=== PATIENT | male | born 1980 | race Caucasian/White ===

== ENCOUNTER 2018-08-16 03:34 | Inpatient (IN) | payer MEDICAID, OTHER ==
[~2018-08-16] VITALS: Ht 175.3 cm; Wt 93.4 kg
[2018-08-16 07:58] LABS: BASOPHILS % 1.2 % (0.0-2.0); CHLORIDE 108 mEq/L (98-107); EOSINOPHILS % 3.4 % (0.0-5.0); HEMATOCRIT. 36.4 % (42.0-52.0); HEMOGLOBIN. 12.3 g/dL (14.0-18.0); LYMPHOCYTES % 30.6 % (20.0-50.0); MEAN CORPUSCULAR HEMOGLOBIN 29.3 pg (28.0-32.0); MEAN CORPUSCULAR VOLUME 86.6 fL (80.0-94.0); MEAN PLATELET VOLUME 8.3 fl (7.4-10.4); MONOCYTES % 5.7 % (2.0-8.0); NEUTROPHILS % 59.1 % (40.0-76.0); PLATELET 368 x1000/uL (130-400); RED CELL DISTRIBUTION WIDTH 13.3 % (11.6-14.6)
[2018-08-16] MEDS ORDERED: FUROSEMIDE 40MG/4ML VIAL IVP ONE (08:30)
[2018-08-16] MEDS ORDERED: LEVOFLOXACIN 750MG PREMIX 150 ML IV ONE (08:30)
[2018-08-16 10:49] LABS: *AMPHETAMINES SCREEN URINE PRESUMTIVE POSITIVE (NEGATIVE); *BARBITURATES SCREEN URINE NEGATIVE (NEGATIVE); *BENZODIAZEPINES SCREEN URINE NEGATIVE (NEGATIVE); *COCAINE SCREEN URINE NEGATIVE (NEGATIVE); METHADONE URINE SCREEN NEGATIVE (NEGATIVE); OPIATES URINE SCREEN NEGATIVE (NEGATIVE); PHENCYCLIDINE URINE SCREEN NEGATIVE (NEGATIVE)
[2018-08-16 10:50] LABS: CANNABINOID URINE SCREEN NEGATIVE (NEGATIVE)
[2018-08-16] MEDS ORDERED: ACETAMINOPHEN 325MG TABLET PO PRN (11:00)
[2018-08-16] MEDS ORDERED: ONDANSETRON HCL 4MG/2ML INJ IV PRN (11:00)
[2018-08-16] MEDS ORDERED: IPRATROPIUM/ALBUTEROL 0.5-3(2.5)MG/3ML NEB INH PRN (11:00)
[2018-08-16] MEDS ORDERED: CLONIDINE 0.1MG TABLET PO PRN ×2 (11:00→14:00)
[2018-08-16] MEDS ORDERED: HYDROCODONE/ACETAMINOPHEN 5/325MG TABLET PO PRN (11:00)
[2018-08-16] MEDS ORDERED: DOCUSATE SODIUM 100MG CAPSULE PO PRN (11:00)
[2018-08-16 12:28] LABS: PHOSPHORUS 3.1 mg/dL (2.5-4.9)
[2018-08-16] MEDS: AZITHROMYCIN 500 MG TABLET PO SCH (12:37)
[2018-08-16] MEDS ORDERED: CLONIDINE 0.2MG TABLET PO PRN (14:00)
[2018-08-16 14:43] VITALS: BP 140/104
[2018-08-16 14:51] VITALS: BP 140/104
[2018-08-16 14:56] LABS: CLARITY URINE CLEAR (CLEAR); COLOR URINE YELLOW (YELLOW); KETONES URINE NEGATIVE (NEGATIVE); LEUKOCYTE ESTERASE URINE 2+ (NEGATIVE); NITRITE URINE NEGATIVE (NEGATIVE); OCCULT BLOOD URINE NEGATIVE (NEGATIVE); PROTEIN URINE NEGATIVE (NEGATIVE); SPECIFIC GRAVITY URINE 1.019 (1.005-1.030); UROBILINOGEN URINE 0.2 E.U./dL (0.2-1.0)
[2018-08-16] MEDS: AMLODIPINE 5MG TABLET PO SCH ×2 (15:46→21:00)
[2018-08-16 16:30] VITALS: BP 168/120
[2018-08-16 20:00] VITALS: BP 106/57
[2018-08-17] VITALS: BP 120/79
[2018-08-17 04:00] VITALS: BP 118/76
[2018-08-17 06:01] LABS: EOSINOPHILS % 4.2 % (0.0-5.0); HEMATOCRIT. 33.5 % (42.0-52.0); HEMOGLOBIN. 11.7 g/dL (14.0-18.0); LYMPHOCYTES % 33.1 % (20.0-50.0); MEAN CORPUSCULAR HEMOGLOBIN 29.9 pg (28.0-32.0); MEAN CORPUSCULAR VOLUME 85.7 fL (80.0-94.0); MEAN PLATELET VOLUME 8.4 fl (7.4-10.4); NEUTROPHILS % 54.7 % (40.0-76.0); PLATELET 312 x1000/uL (130-400); RED BLOOD CELL COUNT 3.91 mill/uL (4.7-6.1); RED CELL DISTRIBUTION WIDTH 13.3 % (11.6-14.6)
[2018-08-17 06:16] LABS: CHLORIDE 107 mEq/L (98-107)
[2018-08-17 06:29] LABS: PHOSPHORUS 3.6 mg/dL (2.5-4.9)
[2018-08-17 06:30] LABS: LDL CHOLESTEROL 106 mg/dL (5-100)
[2018-08-17 06:31] LABS: HDL CHOLESTEROL 36 mg/dL (40-59)
[2018-08-17] MEDS: AZITHROMYCIN 500 MG TABLET PO SCH (09:33)
[2018-08-17] MEDS: AMLODIPINE 5MG TABLET PO SCH ×2 (09:34→21:20)
[2018-08-17 11:36] VITALS: BP 135/97
[2018-08-17] MEDS ORDERED: POTASSIUM CHLORIDE 20MEQ TABLET SR PO NR (13:15)
[2018-08-17 15:55] VITALS: BP 131/93
[2018-08-17 20:00] VITALS: BP 145/100
[2018-08-17] MEDS ORDERED: ZOLPIDEM TARTRATE 5MG TABLET PO PRN (23:30)
[2018-08-17] MEDS ORDERED: GUAIFENESIN 200MG/10ML SUGAR FREE UDC PO PRN (23:30)
[2018-08-18] VITALS: BP 142/98
[2018-08-18] MEDS ORDERED: VANCOMYCIN 1500MG in DEXTROSE 5% WATER 250ML IV NR (01:00)
[2018-08-18 04:00] VITALS: BP 139/104
[2018-08-18 06:54] LABS: BASOPHILS % 1.2 % (0.0-2.0); EOSINOPHILS % 4.1 % (0.0-5.0); HEMATOCRIT. 34.6 % (42.0-52.0); LYMPHOCYTES % 33.9 % (20.0-50.0); MEAN CORPUSCULAR HEMOGLOBIN 29.6 pg (28.0-32.0); MEAN CORPUSCULAR VOLUME 85.1 fL (80.0-94.0); MEAN PLATELET VOLUME 8.6 fl (7.4-10.4); NEUTROPHILS % 54.8 % (40.0-76.0); PLATELET 336 x1000/uL (130-400); RED BLOOD CELL COUNT 4.07 mill/uL (4.7-6.1); RED CELL DISTRIBUTION WIDTH 13.2 % (11.6-14.6)
[2018-08-18 07:16] LABS: CHLORIDE 107 mEq/L (98-107)
[2018-08-18 07:22] LABS: PHOSPHORUS 3.5 mg/dL (2.5-4.9)
[2018-08-18] MEDS: VANCOMYCIN 1250MG in DEXTROSE 5% WATER 250ML IV SCH ×2 (08:21→22:24)
[2018-08-18 08:25] VITALS: BP 150/112
[2018-08-18] MEDS: AMLODIPINE 5MG TABLET PO SCH ×2 (08:27→20:50)
[2018-08-18] MEDS ORDERED: METOPROLOL TARTRATE 25MG TABLET PO SCH ×2 (09:00→17:00)
[2018-08-18 12:14] VITALS: BP 118/88
[2018-08-18] MEDS ORDERED: POTASSIUM CHLORIDE 20MEQ TABLET SR PO NR (15:15)
[2018-08-18 16:04] VITALS: BP 128/90
[2018-08-18] MEDS: LOSARTAN POTASSIUM 25 MG TABLET PO SCH ×2 (16:12→20:50)
[2018-08-18] MEDS: FUROSEMIDE 40MG/4ML VIAL IVP SCH (16:42)
[2018-08-18 20:30] VITALS: BP 128/84
[2018-08-18] MEDS: HYDRALAZINE HCL 50MG TABLET PO SCH (20:53)
[2018-08-19] VITALS: BP 128/91
[2018-08-19 04:00] VITALS: BP 134/87
[2018-08-19 08:04] VITALS: BP 144/96
[2018-08-19] MEDS: LOSARTAN POTASSIUM 25 MG TABLET PO SCH (08:40)
[2018-08-19] MEDS: FUROSEMIDE 40MG/4ML VIAL IVP SCH (08:41)
[2018-08-19] MEDS: AMLODIPINE 5MG TABLET PO SCH (08:41)
[2018-08-19] MEDS: HYDRALAZINE HCL 50MG TABLET PO SCH (08:43)
[2018-08-19] MEDS ORDERED: LOSARTAN POTASSIUM 25 MG TABLET PO SCH (09:00)
[2018-08-19] MEDS ORDERED: POTASSIUM CHLORIDE 20MEQ TABLET SR PO SCH (09:00)
[2018-08-19] MEDS ORDERED: LOSA25TA3 PO (10:03)
[2018-08-19] MEDS ORDERED: AMLO5TAB88 PO (10:03)
[2018-08-19] MEDS ORDERED: HYDR100T26 PO (10:03)
[2018-08-19] MEDS ORDERED: FURO40TA5 MT (10:04)
[2018-08-19 11:25] VITALS: BP 138/92
[2018-08-19] MEDS ORDERED: HYDRALAZINE HCL 100MG TABLET PO SCH (21:00)
== END 2018-08-19 17:55 | disposition home health service (06) | DRG 469 ==
LOC: ER 03:34 → 6WST 08:49 → EDBEDREQ 09:03 → ENRESERV 13:57
PROVIDERS: ADMIT Internal Medicine; ATTEND Internal Medicine
DX: N17.9 Acute kidney failure, unspecified (principal); J96.00 Acute respiratory failure, unspecified whether with hypoxia or hypercapnia; I50.23 Acute on chronic systolic (congestive) heart failure; E44.0 Moderate protein-calorie malnutrition; J81.1 Chronic pulmonary edema; I13.0 Hypertensive heart and chronic kidney disease with heart failure and stage 1 through stage 4 chronic kidney disease, or unspecified chronic kidney disease; N18.3 Chronic kidney disease, stage 3 (moderate); I42.0 Dilated cardiomyopathy; F15.10 Other stimulant abuse, uncomplicated; F10.10 Alcohol abuse, uncomplicated; Z79.899 Other long term (current) drug therapy; Z91.14 Patient's other noncompliance with medication regimen; Z91.19 Patient's noncompliance with other medical treatment and regimen; Z82.49 Family history of ischemic heart disease and other diseases of the circulatory system; Z83.3 Family history of diabetes mellitus; I25.10 Atherosclerotic heart disease of native coronary artery without angina pectoris; Z68.30 Body mass index [BMI] 30.0-30.9, adult; J06.9 Acute upper respiratory infection, unspecified
CPT/HCPCS: 36415; 71045; 76770; 80048; 80061; 80305; 82570; 83036; 83605; 83735; 83880; 84100; 84145; 84156; 84300; 84443; 84484; 85379; 87804; 93005; 93306; 96365; 96375; 99285; J1940; J1956; J3370; J7050; J7060

== ENCOUNTER 2018-10-29 04:45 | Inpatient (IN) | payer MEDICAID ==
[~2018-10-29] VITALS: Ht 177.8 cm; Wt 109.8 kg
[~2018-10-29 04:45] MED LIST: AMLO5TAB88 PO; FURO40TA5 MT; HYDR100T26 PO; LOSA25TA3 PO
[2018-10-29 06:32] LABS: BASOPHILS % 1.3 % (0.0-2.0); EOSINOPHILS % 1.7 % (0.0-5.0); HEMATOCRIT. 38.4 % (42.0-52.0); HEMOGLOBIN. 12.8 g/dL (14.0-18.0); LYMPHOCYTES % 27.2 % (20.0-50.0); MEAN CORPUSCULAR HEMOGLOBIN 29.3 pg (28.0-32.0); MEAN CORPUSCULAR VOLUME 87.7 fL (80.0-94.0); MEAN PLATELET VOLUME 8.6 fl (7.4-10.4); MONOCYTES % 6.7 % (2.0-8.0); NEUTROPHILS % 63.1 % (40.0-76.0); PLATELET 238 x1000/uL (130-400); RED BLOOD CELL COUNT 4.38 mill/uL (4.7-6.1); RED CELL DISTRIBUTION WIDTH 16.5 % (11.6-14.6)
[2018-10-29 06:35] LABS: CHLORIDE 107 mEq/L (98-107)
[2018-10-29] MEDS ORDERED: GABAPENTIN 300MG CAPSULE PO ONE (07:00)
[2018-10-29] MEDS ORDERED: FUROSEMIDE 40MG/4ML VIAL IVP ONE (07:15)
[2018-10-29] MEDS ORDERED: DOCUSATE SODIUM 100MG CAPSULE PO PRN (09:45)
[2018-10-29] MEDS ORDERED: GUAIFENESIN 200MG/10ML SUGAR FREE UDC PO PRN (09:45)
[2018-10-29] MEDS ORDERED: CLONIDINE 0.1MG TABLET PO PRN (09:45)
[2018-10-29] MEDS ORDERED: KETOROLAC 15MG/ML VIAL IV PRN (09:45)
[2018-10-29] MEDS ORDERED: NITROGLYCERIN 0.4MG TABLET SL SL PRN (09:45)
[2018-10-29] MEDS ORDERED: ACETAMINOPHEN 325MG TABLET PO PRN (09:45)
[2018-10-29] MEDS ORDERED: ONDANSETRON HCL 4MG/2ML INJ IV PRN (09:45)
[2018-10-29] MEDS ORDERED: IPRATROPIUM/ALBUTEROL 0.5-3(2.5)MG/3ML NEB INH PRN (09:45)
[2018-10-29] MEDS ORDERED: LORAZEPAM 0.5MG TABLET PO PRN (09:45)
[2018-10-29] MEDS ORDERED: MAGNESIUM/ALUMINUM HYDROXIDE/SIMETHICONE 30ML UDC PO PRN (09:45)
[2018-10-29] MEDS: DILTIAZEM HCL 60MG TABLET PO SCH ×2 (11:55→17:31)
[2018-10-29 12:00] VITALS: BP 160/122
[2018-10-29] MEDS ORDERED: PNEUMOCOCCAL 23-VAL P-SAC VAC 0.5 ML IM ONE (13:00)
[2018-10-29] MEDS ORDERED: INFLUENZA VIRUS VACCINE(AFLURIA) 0.5ML SYR IM ONE (13:00)
[2018-10-29] MEDS ORDERED: DILT30TA38 MT (13:03)
[2018-10-29 13:04] VITALS: BP 160/122
[2018-10-29 13:39] LABS: *AMPHETAMINES SCREEN URINE PRESUMTIVE POSITIVE (NEGATIVE); *BARBITURATES SCREEN URINE NEGATIVE (NEGATIVE); *BENZODIAZEPINES SCREEN URINE NEGATIVE (NEGATIVE)
[2018-10-29 13:40] LABS: *COCAINE SCREEN URINE NEGATIVE (NEGATIVE); CANNABINOID URINE SCREEN NEGATIVE (NEGATIVE); METHADONE URINE SCREEN NEGATIVE (NEGATIVE); OPIATES URINE SCREEN NEGATIVE (NEGATIVE); PHENCYCLIDINE URINE SCREEN NEGATIVE (NEGATIVE)
[2018-10-29 16:00] VITALS: BP 129/101
[2018-10-29 17:08] VITALS: BP 135/101
[2018-10-29 18:45] LABS: CREATINE KINASE MB FRACTION 1.6 ng/mL (0.5-3.6)
[2018-10-29 20:16] VITALS: BP 144/84
[2018-10-29] MEDS: FAMOTIDINE 20MG TABLET PO SCH (20:53)
[2018-10-29] MEDS ORDERED: ZOLPIDEM TARTRATE 5MG TABLET PO PRN (21:00)
[2018-10-30] VITALS: BP 142/60
[2018-10-30 04:00] VITALS: BP 158/70
[2018-10-30] MEDS: DILTIAZEM HCL 60MG TABLET PO SCH ×3 (06:00→12:40)
[2018-10-30 08:00] VITALS: BP 124/75
[2018-10-30] MEDS ORDERED: ASPIRIN 325MG EC TABLET PO SCH (09:00)
[2018-10-30] MEDS: FAMOTIDINE 20MG TABLET PO SCH (09:58)
[2018-10-30 12:29] VITALS: BP 126/89
[2018-10-30 15:04] VITALS: BP 126/89
== END 2018-10-30 15:50 | disposition home or self-care (01) | DRG 812 ==
LOC: ER 05:09 → 8WST 07:47 → EDBEDREQ 07:52 → ENRESERV 09:52
PROVIDERS: ADMIT Internal Medicine; ATTEND Internal Medicine
DX: T50.901A Poisoning by unspecified drugs, medicaments and biological substances, accidental (unintentional), initial encounter (principal); N17.0 Acute kidney failure with tubular necrosis; I50.9 Heart failure, unspecified; I11.0 Hypertensive heart disease with heart failure; I42.9 Cardiomyopathy, unspecified; E11.51 Type 2 diabetes mellitus with diabetic peripheral angiopathy without gangrene; F17.210 Nicotine dependence, cigarettes, uncomplicated; E78.5 Hyperlipidemia, unspecified; F15.10 Other stimulant abuse, uncomplicated; E78.00 Pure hypercholesterolemia, unspecified; Z79.899 Other long term (current) drug therapy; Z71.51 Drug abuse counseling and surveillance of drug abuser; Y92.89 Other specified places as the place of occurrence of the external cause
CPT/HCPCS: 36415; 71045; 80061; 80305; 82550; 82553; 83036; 83880; 84484; 85379; 93005; 93970; 96374; 99285; J1885; J1940

== ENCOUNTER 2021-05-12 13:18 | Inpatient (IN) | payer MEDICAID ==
[~2021-05-12] VITALS: Ht 180.3 cm; Wt 127.5 kg
[~2021-05-12 13:18] MED LIST changes: +ASPI-1406 PO; +BUME1TAB8 PO; +CARV25TA47 PO; +DILT30TA38 MT; +HYDR-4001 MT; +ONDA4TAB50 PO; +SACU1TAB PO; +SPIR25TA6 PO
[2021-05-12] MEDS ORDERED: MAGNESIUM/ALUMINUM HYDROXIDE/SIMETHICONE 30ML UDC PO STA (13:31)
[2021-05-12 14:35] LABS: BASOPHILS % 0.4 % (0.0-2.0); EOSINOPHILS % 1.5 % (0.0-5.0); HEMATOCRIT. 45.7 % (42.0-52.0); HEMOGLOBIN. 16.2 g/dL (14.0-18.0); LYMPHOCYTES % 13.9 % (20.0-50.0); MEAN CORPUSCULAR HEMOGLOBIN 30.1 pg (28.0-32.0); MEAN CORPUSCULAR VOLUME 85.2 fL (80.0-94.0); MEAN PLATELET VOLUME 8.6 fl (7.4-10.4); MONOCYTES % 4.2 % (2.0-8.0); PLATELET 224 x1000/uL (130-400); RED BLOOD CELL COUNT 5.37 mill/uL (4.7-6.1)
[2021-05-12 14:42] LABS: PROTHROMBIN TIME 10.9 sec (9.6-11.0)
[2021-05-12 14:48] LABS: CHLORIDE 107 mEq/L (98-107)
[2021-05-12] MEDS ORDERED: ASPIRIN 325MG EC TABLET PO ONE (15:15)
[2021-05-12] MEDS ORDERED: MORPHINE SULFATE 4 MG/ML CPJ (NOT FOR IM USE) IV ONE ×2 (15:15→18:15)
[2021-05-12] MEDS ORDERED: IOHEXOL-300 100 ML BOTTLE ONE (16:35)
[2021-05-12] MEDS: DEXT 5%/0.45% NACL 1000ML 1,000 ML IV SCH (22:15)
[2021-05-12] MEDS: HYDROMORPHONE HCL/PF 2MG/ML CPJ IV PRN (22:49)
[2021-05-13 04:39] LABS: BASOPHILS % 0.7 % (0.0-2.0); EOSINOPHILS % 1.5 % (0.0-5.0); HEMATOCRIT. 46.9 % (42.0-52.0); HEMOGLOBIN. 16.4 g/dL (14.0-18.0); LYMPHOCYTES % 14.6 % (20.0-50.0); MEAN CORPUSCULAR HEMOGLOBIN 29.9 pg (28.0-32.0); MEAN CORPUSCULAR VOLUME 85.6 fL (80.0-94.0); MEAN PLATELET VOLUME 8.5 fl (7.4-10.4); MONOCYTES % 5.7 % (2.0-8.0); NEUTROPHILS % 77.5 % (40.0-76.0); PLATELET 213 x1000/uL (130-400); RED BLOOD CELL COUNT 5.48 mill/uL (4.7-6.1); RED CELL DISTRIBUTION WIDTH 13.9 % (11.6-14.6)
[2021-05-13 04:48] LABS: CHLORIDE 109 mEq/L (98-107)
[2021-05-13] MEDS ORDERED: NALOXONE HCL 0.4MG/ML VIAL IV PRN (09:30)
[2021-05-13] MEDS: AMLODIPINE 10MG TABLET PO SCH (10:39)
[2021-05-13] MEDS: DEXT 5%/0.45% NACL 1000ML 1,000 ML IV SCH ×2 (11:40→23:58)
[2021-05-13] MEDS: HYDROMORPHONE HCL/PF 2MG/ML CPJ IV PRN ×2 (13:10→19:04)
[2021-05-13 14:30] VITALS: BP 154/97
[2021-05-13] MEDS ORDERED: DEXTROSE 50% WATER 50ML SYRINGE IV PRN (15:30)
[2021-05-13 16:00] VITALS: BP 156/94
[2021-05-13] MEDS: BLOOD SUGAR DIAGNOSTIC STRIP TEST SCH ×2 (17:20→20:58)
[2021-05-13] MEDS: INSULIN LISPRO 100 UNITS/ML SUBCUT SCH ×2 (17:50→20:58)
[2021-05-13 20:00] VITALS: BP 165/110
[2021-05-13] MEDS ORDERED: CLONIDINE HCL 0.2MG/24HR PATCH TD SCH (20:00)
[2021-05-13] MEDS ORDERED: POTASSIUM CHLORIDE INJ 40 MEQ in DEXT 5% WATER 500 ML IV NR (20:00)
[2021-05-13] MEDS: ONDANSETRON HCL 4MG/2ML INJ IV PRN (20:58)
[2021-05-14] VITALS: BP 168/107
[2021-05-14] MEDS: HYDROMORPHONE HCL/PF 2MG/ML CPJ IV PRN ×3 (00:29→15:25)
[2021-05-14] MEDS ORDERED: AMLODIPINE 10MG TABLET PO SCH (01:00)
[2021-05-14 04:00] VITALS: BP 153/100
[2021-05-14] MEDS: BLOOD SUGAR DIAGNOSTIC STRIP TEST SCH ×4 (06:32→21:00)
[2021-05-14] MEDS: INSULIN LISPRO 100 UNITS/ML SUBCUT SCH ×4 (07:03→21:00)
[2021-05-14 08:49] LABS: CLARITY URINE CLOUDY (CLEAR); COLOR URINE DK YELLOW (YELLOW); KETONES URINE NEGATIVE (NEGATIVE); LEUKOCYTE ESTERASE URINE 2+ (NEGATIVE); NITRITE URINE NEGATIVE (NEGATIVE); OCCULT BLOOD URINE NEGATIVE (NEGATIVE); PH URINE 5.5 (4.5-8.0); PROTEIN URINE 1+ (NEGATIVE); SPECIFIC GRAVITY URINE 1.026 (1.005-1.030); UROBILINOGEN URINE 0.2 E.U./dL (0.2-1.0)
[2021-05-14] MEDS: AMLODIPINE 10MG TABLET PO SCH (09:48)
[2021-05-14] MEDS ORDERED: DILTIAZEM HCL 30MG TABLET PO SCH (11:30)
[2021-05-14] MEDS ORDERED: SPIRONOLACTONE 25MG TABLET PO SCH (11:30)
[2021-05-14 12:00] VITALS: BP 140/97
[2021-05-14] MEDS: ASPIRIN 81MG EC TABLET PO SCH (13:02)
[2021-05-14] MEDS: BUMETANIDE 1MG TABLET PO SCH ×2 (13:02→17:30)
[2021-05-14] MEDS: SPIRONOLACTONE 25MG TABLET PO SCH (13:03)
[2021-05-14 16:00] VITALS: BP 145/111
[2021-05-14] MEDS: HYDRALAZINE HCL 100MG TABLET PO SCH (23:01)
[2021-05-14] MEDS: CARVEDILOL 12.5MG TABLET PO SCH (23:01)
[2021-05-14] MEDS: LOSARTAN POTASSIUM 25 MG TABLET PO SCH (23:01)
[2021-05-14] MEDS: AMLODIPINE 5MG TABLET PO SCH (23:02)
[2021-05-15] MEDS: HYDROMORPHONE HCL/PF 2MG/ML CPJ IV PRN ×2 (00:05→16:01)
[2021-05-15] MEDS: ONDANSETRON HCL 4MG/2ML INJ IV PRN (00:11)
[2021-05-15 07:08] LABS: BASOPHILS % 0.6 % (0.0-2.0); EOSINOPHILS % 0.5 % (0.0-5.0); HEMATOCRIT. 38.9 % (42.0-52.0); LYMPHOCYTES % 15.8 % (20.0-50.0); MEAN CORPUSCULAR HEMOGLOBIN 30.8 pg (28.0-32.0); MEAN CORPUSCULAR VOLUME 85.5 fL (80.0-94.0); MEAN PLATELET VOLUME 9.2 fl (7.4-10.4); MONOCYTES % 6.5 % (2.0-8.0); NEUTROPHILS % 76.6 % (40.0-76.0); PLATELET 227 x1000/uL (130-400); RED BLOOD CELL COUNT 4.55 mill/uL (4.7-6.1); RED CELL DISTRIBUTION WIDTH 14.1 % (11.6-14.6)
[2021-05-15 08:00] VITALS: BP 90/51
[2021-05-15] MEDS: BLOOD SUGAR DIAGNOSTIC STRIP TEST SCH ×4 (08:07→21:00)
[2021-05-15 08:50] LABS: CHLORIDE 102 mEq/L (98-107)
[2021-05-15] MEDS: HYDRALAZINE HCL 100MG TABLET PO SCH (09:00)
[2021-05-15] MEDS: CARVEDILOL 12.5MG TABLET PO SCH (09:00)
[2021-05-15] MEDS: LOSARTAN POTASSIUM 25 MG TABLET PO SCH (09:00)
[2021-05-15] MEDS: SPIRONOLACTONE 25MG TABLET PO SCH (09:00)
[2021-05-15] MEDS: BUMETANIDE 1MG TABLET PO SCH (09:00)
[2021-05-15] MEDS: ASPIRIN 81MG EC TABLET PO SCH (09:00)
[2021-05-15] MEDS: AMLODIPINE 10MG TABLET PO SCH (09:00)
[2021-05-15] MEDS: AMLODIPINE 5MG TABLET PO SCH (09:00)
[2021-05-15] MEDS: INSULIN LISPRO 100 UNITS/ML SUBCUT SCH ×4 (09:52→21:00)
[2021-05-15 12:00] VITALS: BP 108/52
[2021-05-15 16:00] VITALS: BP 111/74
[2021-05-15 16:35] LABS: CREATINE KINASE 80 IU/L (39-308)
[2021-05-15] MEDS: SODIUM CHLORIDE 0.9% 1,000 ML IV SCH (17:27)
[2021-05-15 18:09] LABS: *AMPHETAMINES SCREEN URINE NEGATIVE (NEGATIVE); *BARBITURATES SCREEN URINE NEGATIVE (NEGATIVE); *BENZODIAZEPINES SCREEN URINE NEGATIVE (NEGATIVE); CANNABINOID URINE SCREEN PRESUMTIVE POSITIVE (NEGATIVE); METHADONE URINE SCREEN NEGATIVE (NEGATIVE); OPIATES URINE SCREEN PRESUMTIVE POSITIVE (NEGATIVE); PHENCYCLIDINE URINE SCREEN NEGATIVE (NEGATIVE)
[2021-05-15 18:12] LABS: *COCAINE SCREEN URINE NEGATIVE (NEGATIVE)
[2021-05-15 20:00] VITALS: BP 123/77
[2021-05-15] MEDS ORDERED: HYDRALAZINE HCL 50MG TABLET PO SCH (21:00)
[2021-05-16] VITALS: BP 122/80
[2021-05-16] MEDS: HYDROMORPHONE HCL/PF 2MG/ML CPJ IV PRN ×3 (00:53→23:59)
[2021-05-16] MEDS: SODIUM CHLORIDE 0.9% 1,000 ML IV SCH ×2 (02:30→12:30)
[2021-05-16 04:00] VITALS: BP 115/72
[2021-05-16 07:20] LABS: BASOPHILS % 0.9 % (0.0-2.0); EOSINOPHILS % 5.4 % (0.0-5.0); HEMATOCRIT. 36.8 % (42.0-52.0); HEMOGLOBIN. 13.3 g/dL (14.0-18.0); LYMPHOCYTES % 38.8 % (20.0-50.0); MEAN CORPUSCULAR HEMOGLOBIN 30.8 pg (28.0-32.0); MEAN CORPUSCULAR VOLUME 85.4 fL (80.0-94.0); MEAN PLATELET VOLUME 9.2 fl (7.4-10.4); MONOCYTES % 7.5 % (2.0-8.0); NEUTROPHILS % 47.4 % (40.0-76.0); PLATELET 179 x1000/uL (130-400); RED BLOOD CELL COUNT 4.31 mill/uL (4.7-6.1)
[2021-05-16 07:32] LABS: CHLORIDE 105 mEq/L (98-107)
[2021-05-16] MEDS: INSULIN LISPRO 100 UNITS/ML SUBCUT SCH ×4 (07:50→21:00)
[2021-05-16 08:00] VITALS: BP 136/81
[2021-05-16] MEDS: BLOOD SUGAR DIAGNOSTIC STRIP TEST SCH ×4 (08:13→21:45)
[2021-05-16] MEDS ORDERED: POTASSIUM CHLORIDE 20MEQ TABLET SR PO SCH (08:15)
[2021-05-16] MEDS: ASPIRIN 81MG EC TABLET PO SCH (09:14)
[2021-05-16 12:00] VITALS: BP 126/82
[2021-05-16 16:00] VITALS: BP 136/88
[2021-05-16 20:00] VITALS: BP 149/98
[2021-05-16] MEDS: ONDANSETRON HCL 4MG/2ML INJ IV PRN (21:44)
[2021-05-17] VITALS: BP 146/89
[2021-05-17 04:00] VITALS: BP 139/96
[2021-05-17 06:50] LABS: BASOPHILS % 1.1 % (0.0-2.0); EOSINOPHILS % 6.2 % (0.0-5.0); HEMATOCRIT. 40.4 % (42.0-52.0); HEMOGLOBIN. 14.1 g/dL (14.0-18.0); LYMPHOCYTES % 37.2 % (20.0-50.0); MEAN CORPUSCULAR HEMOGLOBIN 29.9 pg (28.0-32.0); MONOCYTES % 7.1 % (2.0-8.0); NEUTROPHILS % 48.4 % (40.0-76.0); PLATELET 204 x1000/uL (130-400)
[2021-05-17 06:57] LABS: CHLORIDE 106 mEq/L (98-107)
[2021-05-17] MEDS: INSULIN LISPRO 100 UNITS/ML SUBCUT SCH ×2 (07:50→12:50)
[2021-05-17] MEDS: BLOOD SUGAR DIAGNOSTIC STRIP TEST SCH ×2 (07:51→12:20)
[2021-05-17 08:00] VITALS: BP 166/99
[2021-05-17] MEDS: ASPIRIN 81MG EC TABLET PO SCH (09:21)
[2021-05-17] MEDS ORDERED: POTASSIUM CHLORIDE 20MEQ TABLET SR PO NR (09:30)
[2021-05-17 12:00] VITALS: BP 167/100
[2021-05-17 13:35] VITALS: BP 167/100
[2021-05-17] MEDS ORDERED: HYDRALAZINE HCL 100MG TABLET PO SCH (21:00)
[2021-05-17] MEDS ORDERED: CARVEDILOL 12.5MG TABLET PO SCH (21:00)
== END 2021-05-17 14:45 | disposition home or self-care (01) | DRG 282 ==
LOC: ER 13:26 → MICUSO 16:55 → 7EST 05-13 07:46 → MICUSO 05-13 09:21 → 6EST 05-13 13:02
PROVIDERS: ADMIT Hospitalist; ATTEND Hospitalist
DX: K85.90 Acute pancreatitis without necrosis or infection, unspecified (principal); N17.0 Acute kidney failure with tubular necrosis; I11.0 Hypertensive heart disease with heart failure; I95.9 Hypotension, unspecified; I50.9 Heart failure, unspecified; E11.9 Type 2 diabetes mellitus without complications; I25.10 Atherosclerotic heart disease of native coronary artery without angina pectoris; K80.20 Calculus of gallbladder without cholecystitis without obstruction; Z79.82 Long term (current) use of aspirin; Z79.899 Other long term (current) drug therapy; Z79.84 Long term (current) use of oral hypoglycemic drugs; Z90.49 Acquired absence of other specified parts of digestive tract; Z87.891 Personal history of nicotine dependence
CPT/HCPCS: 36415; 71045; 74177; 76770; 80048; 80053; 80305; 81003; 82550; 82962; 83036; 83880; 84478; 84484; 85025; 93005; 99285; J1170; J1815; J2270; J2405; J3480; J7030; J7060; Q9967